=== PATIENT | female | born 1985 | race Caucasian/White ===

== ENCOUNTER 2016-12-09 05:34 | Observation (INO) ==
[2016-12-09] MEDS ORDERED: Ondansetron 4 MG/2 ML VIAL IVP ONE ×2 (05:55→14:26)
[2016-12-09] MEDS ORDERED: *HR* HYDROmorphone (PF) 1 MG/ML SYRINGE IVP ONE ×2 (05:55→07:02)
[2016-12-09] MEDS ORDERED: 0.9 % Sodium Chloride 1,000 ML IVC ONE (05:55)
--- NOTE | 2016-12-09 05:57 | Emergency Department Note ---
Disposition Clinical Impression: Flank pain Disposition: Still a Patient Condition: Undetermined Referrals: Johann Wyatt [Primary Care Provider] - Forms: ED Satisfaction Letter, Work/School Release General Adult HPI - General Chief complaint: ED Abdominal Pain Stated complaint: N/V/hurts when peeing Time Seen by Provider: 12/09/16 05:43 Source: patient Mode of arrival: ambulatory Limitations: no limitations Nursing Notes Reviewed: Yes Vital Signs Reviewed: Yes - History of Present Illness HPI Narrative: 31-year-old female history of PCOS presents with bilateral flank pain worse on the left. She started to notice some pain last night and took Tylenol at that time but woke up 0130 with severe sharp stabbing pain in the left flank more than the right. States this feels just like her kidney stones in the past. Her last kidney stone was January 2015. At that time she required lithotripsy and stent placement. Urologist is Dr. Rodolfo Tellez. States she felt warm denies any fever or chills. She is nauseated and has thrown up. Reports some dysuria that has been ongoing for past week. Denies any blood in her urine or stool. She denies any recent illness, cough, chest pain, shortness of breath. Upon evaluation patient appears very uncomfortable unable to find a position of these. She is very tachycardic. Will give her fluids, Dilaudid for pain, urinalysis and get a CT of the abdomen and pelvis to evaluate for kidney stone. Will also get basic labs evaluated for kidney function. Patients in agreement with this plan. Pain Scale: 9 - Related Data Home Medications Medication Instructions Recorded Confirmed Dm/P-Ephed/Acetaminoph/Doxylam 30 ml PO HS 01/26/15 01/26/15 [Nyquil D Cold & Flu Liquid] Medroxyprogesterone Acetate 150 mg IM QMONTH 01/26/15 01/26/15 [Depo-Provera] Omeprazole [PriLOSEC] 20 mg PO BID 01/26/15 01/26/15 Previous Rx's Medication Instructions Recorded Cefdinir [Omnicef] 300 mg PO DAILY #10 capsule 02/06/15 Hydrocodone/Acetaminophen [[place] 1 tab PO Q4H PRN #20 tab 02/06/15 10-325 Tablet] Phenazopyridine [Pyridium] 200 mg PO TID PRN #15 tablet 02/06/15 Allergies Allergy/AdvReac Type Severity Reaction Status Date / Time acetaminophen [From Percocet] Allergy Confusion Verified 01/26/15 01:46 morphine Allergy Confusion Verified 01/26/15 01:46 Oxycodone [From Percocet] Allergy Confusion Verified 01/26/15 01:46 tramadol Allergy Confusion Verified 01/26/15 01:46 All systems ED: reviewed and negative except as stated. Review of Systems: As Per HPI Constitutional: Denies: fever, chills Cardiovascular: Denies: chest pain Respiratory: Denies: cough, dyspnea Gastrointestinal: Reports: nausea, vomiting. Denies: abdominal pain Genitourinary: Reports: dysuria. Denies: urgency Musculoskeletal: Reports: back pain (flank pain) Integumentary: Denies: rash, abrasion Neurological: Denies: headache Past Medical History - Past Medical History Attestation: Yes The following information was validated with the patient. Source: patient Medical history: Reports: no medical history, kidney stones, renal disease, other Surgical history: Reports: knee replacement Psychiatric history: Reports: no psych history - Social History Smoking Status: Current every day smoker Smokeless Tobacco Status: No Alcohol use: Reports: none Drug use: Reports: none Physical Exam - General Limitations: no limitations General appearance: alert, in no apparent distress, anxious, obese, other ( appears uncomfortable) - Head Head exam: atraumatic, normocephalic, normal inspection - Eye Eye exam: Present: normal appearance, PERRL, EOMI - ENT ENT exam: normal exam, normal oropharynx, mucous membranes moist - Neck Neck exam: Present: normal inspection, full ROM, trachea midline - Chest Chest inspection: Present: normal inspection, symmetric chest wall rise - Respiratory Respiratory exam: Present: normal lung sounds bilaterally. Absent: respiratory distress, wheezes - Cardiovascular Cardiovascular exam: Present: regular rate, normal rhythm, tachycardia, normal heart sounds - Abdominal Exam Abdominal exam: Present: soft, Non-Tender, normal bowel sounds. Absent: tenderness, distention, guarding, rebound, rigidity - Extremities Exam Extremities exam: Present: normal inspection, full ROM, normal capillary refill. Absent: tenderness, pedal edema - Back Exam Back exam: Present: normal inspection, full ROM, CVA tenderness (R) (mild), CVA tenderness (L) (moderate). Absent: tenderness - Neurological Exam Neurological exam: Present: alert, oriented X3 - Skin Skin exam: Present: warm, dry, intact, normal color Course - Reevaluation(s) Reevaluation #1: Patient has bilateral flank pain worse on the left. She reports dysuria as well. Pain feels similar to her kidney stones which she has had the past. Her vital signs she is tachycardic likely due to the pain. She is unable to find a position of ease. Bedside ultrasound showed some mild hydronephrosis of the left kidney. Will give her IV fluids Dilaudid for pain. Awaiting CT of the abdomen and pelvis. Patient will be signed up to daytime physician Dr. Murphy for further management. Time: 06:41 Vital Signs Temperature 98.4 F 12/09/16 05:37 Pulse Rate 144 12/09/16 05:37 Respiratory Rate 18 12/09/16 05:37 Blood Pressure 131/81 12/09/16 05:37 O2 Sat by Pulse Oximetry 97 12/09/16 05:37 Temperature 98.4 F 12/09/16 05:37 Pulse Rate 125 12/09/16 06:43 Respiratory Rate 18 12/09/16 06:43 Blood Pressure 143/81 12/09/16 06:43 O2 Sat by Pulse Oximetry 98 12/09/16 06:43 Oxygen Delivery Oxygen Delivery Room Air Medical Decision Making - Medical Records Medical records reviewed: Yes I reviewed the patient's medical records. - Lab Data Lab results reviewed: Yes I reviewed the patient's lab results. Result diagrams: 12/09/16 06:10 12/09/16 06:10 Lab Results 12/09/16 12/09/16 12/09/16 Range/Units 06:10 06:10 06:27 WBC 17.5 H (4.3-11.1) K/mcL RBC 4.94 (3.82-4.97) M/mcL Hgb 14.0 (11.5-15.4) g/dL Hct 41.4 (35.3-44.9) % MCV 83.8 (83.0-100.0) fL MCH 28.3 (28.0-33.3) pg MCHC 33.8 (31.6-35.5) g/dL RDW 12.4 (11.5-14.5) % Plt Count 247 (140-400) K/mcL MPV 10.3 (9.4-12.4) fL Immature Gran % 0.9 (0-4) % Seg Neutrophils % 88.7 % Lymphocytes % 5.0 % Monocytes % 4.5 % Eosinophils % 0.5 % Basophils % 0.4 % Neutrophils # 15.6 H (1.6-8.9) K/mcL Lymphocytes # 0.9 (0.6-4.6) K/mcL Monocytes # 0.8 (0.0-1.3) K/mcL Eosinophils # 0.1 (0.0-0.6) K/mcL Basophils # 0.1 (0.0-0.2) K/mcL Sodium 135 L (136-145) mEq/L Potassium 3.5 (3.5-4.5) mEq/L Chloride 107 (98-109) mEq/L Carbon Dioxide 20 (19-29) mEq/L BUN 12 (7-20) mg/dL Creatinine 0.97 (0.57-1.11) mg/dL Est GFR ( Amer) > 60 (> 60) Est GFR (Non-Af Amer) > 60 (> 60) BUN/Creatinine Ratio 12 (6-26) Glucose 97 (70-99) mg/dL Calculated Osmolality 280 (280-300) Calcium 9.0 (8.6-10.8) mg/dL Urine Color Yellow (Yellow) Urine Clarity Cloudy A (Clear) Urine pH 6.0 (5.0-8.0) pH Units Ur Specific [place] 1.025 (1.010-1.025) Urine Protein 30 H (Neg-Trace) mg/dL Urine Glucose (UA) Normal (Normal) mg/dL Urine Ketones Negative (Negative) mg/dL Urine Blood Moderate H (Negative) Urine Nitrite Negative (Negative) Urine Bilirubin Negative (Negative) Urine Urobilinogen Normal (Normal) mg/dL Ur Leukocyte Esterase Large H (Negative) Urine Microscopic RBC 30-50 H (0-3) per hpf Urine Microscopic WBC TNTC H (0-3) per hpf Ur Squamous Epith Cells Many H (None-Few) per lpf Urine Bacteria Few (None-Few) per hpf Hyaline Casts None Seen (None-Few) per lpf Ur Culture Indicated? YES A (NO) Urine Test (Negative) 12/09/16 Range/Units 06:27 WBC (4.3-11.1) K/mcL RBC (3.82-4.97) M/mcL Hgb (11.5-15.4) g/dL Hct (35.3-44.9) % MCV (83.0-100.0) fL MCH (28.0-33.3) pg MCHC (31.6-35.5) g/dL RDW (11.5-14.5) % Plt Count (140-400) K/mcL MPV (9.4-12.4) fL Immature Gran % (0-4) % Seg Neutrophils % % Lymphocytes % % Monocytes % % Eosinophils % % Basophils % % Neutrophils # (1.6-8.9) K/mcL Lymphocytes # (0.6-4.6) K/mcL Monocytes # (0.0-1.3) K/mcL Eosinophils # (0.0-0.6) K/mcL Basophils # (0.0-0.2) K/mcL Sodium (136-145) mEq/L Potassium (3.5-4.5) mEq/L Chloride (98-109) mEq/L Carbon Dioxide (19-29) mEq/L BUN (7-20) mg/dL Creatinine (0.57-1.11) mg/dL Est GFR ( Amer) (> 60) Est GFR (Non-Af Amer) (> 60) BUN/Creatinine Ratio (6-26) Glucose (70-99) mg/dL Calculated Osmolality (280-300) Calcium (8.6-10.8) mg/dL Urine Color (Yellow) Urine Clarity (Clear) Urine pH (5.0-8.0) pH Units Ur Specific [place] (1.010-1.025) Urine Protein (Neg-Trace) mg/dL Urine Glucose (UA) (Normal) mg/dL Urine Ketones (Negative) mg/dL Urine Blood (Negative) Urine Nitrite (Negative) Urine Bilirubin (Negative) Urine Urobilinogen (Normal) mg/dL Ur Leukocyte Esterase (Negative) Urine Microscopic RBC (0-3) per hpf Urine Microscopic WBC (0-3) per hpf Ur Squamous Epith Cells (None-Few) per lpf Urine Bacteria (None-Few) per hpf Hyaline Casts (None-Few) per lpf Ur Culture Indicated? (NO) Urine Test Negative (Negative) S.B.A.R. - S.Olena Situation: Demographics, MOA Background: Presenting Complaint, Relevant PMH, Meds, & Allergies Assessment: Vital Signs, Course and respsone to treatment, Exam Concerns, Patient/Family Expectation, Pertinant Lab Results, Outstanding Labs Recommendation: Barrier(s) to disposition, Recommendation based on pending studies, treatments, or consults S.B.ARyann Report Given to: Jeffrey Cruz Repor Time: 07:00 Attestation Statement - Attestation Attestation: I, Jerardo Mack MD, personally evaluated this patient and discussed their management with the resident physician. I reviewed the resident's note and agree with the documented findings, medical decision making, and plan of care. 31-year-old female with history of kidney stones presents to the emergency department with a complaint of not feeling well for the past week or more. She has had bilateral flank pain associated with nausea and vomiting and intermittent fever. She states she was seen at urgent care about a week ago and had an ultrasound and told that she would pass the stones. She states that she has passed 2 stones over the past week but continues to have bilateral flank pain and tonight the pain became much worse and is worse on the left side. On examination patient is a well-developed obese female in no acute distress but does appear to be in moderate discomfort. She is alert and oriented 3. There is no cyanosis or diaphoresis. Breath sounds are clear and equal bilaterally. Heart regular with a moderate tachycardia. Abdomen soft and nontender with normal bowel sounds. There is mild right CVA tenderness and moderate left CVA tenderness. At shift change patient is signed out to the [facility] physician, Dr. Murphy.
[2016-12-09 06:19] LABS: Basophils # 0.1 K/mcL (0.0-0.2); Basophils % 0.4 %; Eosinophils # 0.1 K/mcL (0.0-0.6); Eosinophils % 0.5 %; Hematocrit 41.4 % (35.3-44.9); Immature Granulocytes % 0.9 % (0-4); Lymphocytes # 0.9 K/mcL (0.6-4.6); Mean Corpuscular HGB Conc 33.8 g/dL (31.6-35.5); Mean Corpuscular Hemoglobin 28.3 pg (28.0-33.3); Mean Corpuscular Volume 83.8 fL (83.0-100.0); Mean Platelet Volume 10.3 fL (9.4-12.4); Monocytes # 0.8 K/mcL (0.0-1.3); Monocytes % 4.5 %; Neutrophils # 15.6 K/mcL (1.6-8.9); Platelet Count 247 K/mcL (140-400); Red Blood Count 4.94 M/mcL (3.82-4.97); Red Cell Distribution Width 12.4 % (11.5-14.5); Segmented Neutrophils % 88.7 %
[2016-12-09 06:30] LABS: BUN/Creatinine Ratio 12 (6-26); Blood Urea Nitrogen 12 mg/dL (7-20); Carbon Dioxide 20 mEq/L (19-29); Chloride 107 mEq/L (98-109); Glucose 97 mg/dL (70-99); Osmolality,Calculated 280 (280-300); Potassium 3.5 mEq/L (3.5-4.5); Sodium 135 mEq/L (136-145); eGFR For African Americans > 60 (> 60); eGFR For Non-African Americans > 60 (> 60)
[2016-12-09 06:36] LABS: Bilirubin,Urine Negative (Negative); Blood,Urine Moderate (Negative); Clarity,Urine Cloudy (Clear); Color,Urine Yellow (Yellow); Glucose,Urine (UA) Normal (Normal); Ketones,Urine Negative (Negative); Leukocyte Esterase,Urine Large (Negative); Nitrite,Urine Negative (Negative); Protein,Urine 30 mg/dL (Neg-Trace); Specific Gravity,Urine 1.025 (1.010-1.025); Urobilinogen,Urine Normal (Normal)
[2016-12-09 06:38] LABS: Bacteria,Urine Few per hpf (None-Few); Hyaline Casts,Urine None Seen per lpf (None-Few); RBC,Urine 30-50 per hpf (0-3); Squamous Epithelial Cell,Urine Many per lpf (None-Few); WBC,Urine TNTC per hpf (0-3)
--- NOTE | 2016-12-09 07:10 | Emergency Department Note ---
Disposition Clinical Impression: Flank pain, Kidney stone on left side Disposition: Admitted As Inpatient Condition: Fair Referrals: Johann Wyatt [Primary Care Provider] - Forms: ED Satisfaction Letter, Work/School Release Time of Disposition: 07:34 General Adult HPI - General Chief complaint: ED Abdominal Pain Stated complaint: N/V/hurts when peeing Time Seen by Provider: 12/09/16 05:43 Source: patient Mode of arrival: ambulatory Limitations: no limitations - History of Present Illness Pain Scale: 9 - Related Data Home Medications Medication Instructions Recorded Confirmed Dm/P-Ephed/Acetaminoph/Doxylam 30 ml PO HS 01/26/15 01/26/15 [Nyquil D Cold & Flu Liquid] Medroxyprogesterone Acetate 150 mg IM QMONTH 01/26/15 01/26/15 [Depo-Provera] Omeprazole [PriLOSEC] 20 mg PO BID 01/26/15 01/26/15 Previous Rx's Medication Instructions Recorded Cefdinir [Omnicef] 300 mg PO DAILY #10 capsule 02/06/15 Hydrocodone/Acetaminophen [[place] 1 tab PO Q4H PRN #20 tab 02/06/15 10-325 Tablet] Phenazopyridine [Pyridium] 200 mg PO TID PRN #15 tablet 02/06/15 Allergies Allergy/AdvReac Type Severity Reaction Status Date / Time acetaminophen [From Percocet] Allergy Confusion Verified 01/26/15 01:46 morphine Allergy Confusion Verified 01/26/15 01:46 Oxycodone [From Percocet] Allergy Confusion Verified 01/26/15 01:46 tramadol Allergy Confusion Verified 01/26/15 01:46 Constitutional: Denies: fever, chills Cardiovascular: Denies: chest pain Respiratory: Denies: cough, dyspnea Gastrointestinal: Reports: nausea, vomiting. Denies: abdominal pain Genitourinary: Reports: dysuria. Denies: urgency Musculoskeletal: Reports: back pain (flank pain) Integumentary: Denies: rash, abrasion Neurological: Denies: headache Past Medical History - Past Medical History Medical history: Reports: no medical history, kidney stones, renal disease, other Surgical history: Reports: knee replacement Psychiatric history: Reports: no psych history - Social History Smoking Status: Current every day smoker Smokeless Tobacco Status: No Alcohol use: Reports: none Drug use: Reports: none Physical Exam - General Limitations: no limitations General appearance: alert, in no apparent distress, anxious, obese, other ( appears uncomfortable) Course Vital Signs Temperature 98.4 F 12/09/16 05:37 Pulse Rate 144 12/09/16 05:37 Respiratory Rate 18 12/09/16 05:37 Blood Pressure 131/81 12/09/16 05:37 O2 Sat by Pulse Oximetry 97 12/09/16 05:37 Temperature 98.4 F 12/09/16 05:37 Pulse Rate 125 12/09/16 06:43 Respiratory Rate 18 12/09/16 06:43 Blood Pressure 143/81 12/09/16 06:43 O2 Sat by Pulse Oximetry 98 12/09/16 06:43 Oxygen Delivery Oxygen Delivery Room Air Medical Decision Making - Lab Data Result diagrams: 12/09/16 06:10 12/09/16 06:10 Lab Results 12/09/16 12/09/16 12/09/16 Range/Units 06:10 06:10 06:27 WBC 17.5 H (4.3-11.1) K/mcL RBC 4.94 (3.82-4.97) M/mcL Hgb 14.0 (11.5-15.4) g/dL Hct 41.4 (35.3-44.9) % MCV 83.8 (83.0-100.0) fL MCH 28.3 (28.0-33.3) pg MCHC 33.8 (31.6-35.5) g/dL RDW 12.4 (11.5-14.5) % Plt Count 247 (140-400) K/mcL MPV 10.3 (9.4-12.4) fL Immature Gran % 0.9 (0-4) % Seg Neutrophils % 88.7 % Lymphocytes % 5.0 % Monocytes % 4.5 % Eosinophils % 0.5 % Basophils % 0.4 % Neutrophils # 15.6 H (1.6-8.9) K/mcL Lymphocytes # 0.9 (0.6-4.6) K/mcL Monocytes # 0.8 (0.0-1.3) K/mcL Eosinophils # 0.1 (0.0-0.6) K/mcL Basophils # 0.1 (0.0-0.2) K/mcL Sodium 135 L (136-145) mEq/L Potassium 3.5 (3.5-4.5) mEq/L Chloride 107 (98-109) mEq/L Carbon Dioxide 20 (19-29) mEq/L BUN 12 (7-20) mg/dL Creatinine 0.97 (0.57-1.11) mg/dL Est GFR ( Amer) > 60 (> 60) Est GFR (Non-Af Amer) > 60 (> 60) BUN/Creatinine Ratio 12 (6-26) Glucose 97 (70-99) mg/dL Calculated Osmolality 280 (280-300) Calcium 9.0 (8.6-10.8) mg/dL Urine Color Yellow (Yellow) Urine Clarity Cloudy A (Clear) Urine pH 6.0 (5.0-8.0) pH Units Ur Specific [place] 1.025 (1.010-1.025) Urine Protein 30 H (Neg-Trace) mg/dL Urine Glucose (UA) Normal (Normal) mg/dL Urine Ketones Negative (Negative) mg/dL Urine Blood Moderate H (Negative) Urine Nitrite Negative (Negative) Urine Bilirubin Negative (Negative) Urine Urobilinogen Normal (Normal) mg/dL Ur Leukocyte Esterase Large H (Negative) Urine Microscopic RBC 30-50 H (0-3) per hpf Urine Microscopic WBC TNTC H (0-3) per hpf Ur Squamous Epith Cells Many H (None-Few) per lpf Urine Bacteria Few (None-Few) per hpf Hyaline Casts None Seen (None-Few) per lpf Ur Culture Indicated? YES A (NO) Urine Test (Negative) 12/09/16 Range/Units 06:27 WBC (4.3-11.1) K/mcL RBC (3.82-4.97) M/mcL Hgb (11.5-15.4) g/dL Hct (35.3-44.9) % MCV (83.0-100.0) fL MCH (28.0-33.3) pg MCHC (31.6-35.5) g/dL RDW (11.5-14.5) % Plt Count (140-400) K/mcL MPV (9.4-12.4) fL Immature Gran % (0-4) % Seg Neutrophils % % Lymphocytes % % Monocytes % % Eosinophils % % Basophils % % Neutrophils # (1.6-8.9) K/mcL Lymphocytes # (0.6-4.6) K/mcL Monocytes # (0.0-1.3) K/mcL Eosinophils # (0.0-0.6) K/mcL Basophils # (0.0-0.2) K/mcL Sodium (136-145) mEq/L Potassium (3.5-4.5) mEq/L Chloride (98-109) mEq/L Carbon Dioxide (19-29) mEq/L BUN (7-20) mg/dL Creatinine (0.57-1.11) mg/dL Est GFR ( Amer) (> 60) Est GFR (Non-Af Amer) (> 60) BUN/Creatinine Ratio (6-26) Glucose (70-99) mg/dL Calculated Osmolality (280-300) Calcium (8.6-10.8) mg/dL Urine Color (Yellow) Urine Clarity (Clear) Urine pH (5.0-8.0) pH Units Ur Specific [place] (1.010-1.025) Urine Protein (Neg-Trace) mg/dL Urine Glucose (UA) (Normal) mg/dL Urine Ketones (Negative) mg/dL Urine Blood (Negative) Urine Nitrite (Negative) Urine Bilirubin (Negative) Urine Urobilinogen (Normal) mg/dL Ur Leukocyte Esterase (Negative) Urine Microscopic RBC (0-3) per hpf Urine Microscopic WBC (0-3) per hpf Ur Squamous Epith Cells (None-Few) per lpf Urine Bacteria (None-Few) per hpf Hyaline Casts (None-Few) per lpf Ur Culture Indicated? (NO) Urine Test Negative (Negative) Attestation Statement - Attestation Attestation: There is from Dr. Mack at [address] and reassessment. Patient with a known history of kidney stones presents with renal colic. Uncomfortable appearing on exam. CT pending 07:15: call placed to Dr. Tellez, urology 07:30: Dr. Tellez accepts admission to his service
[2016-12-09] MEDS ORDERED: Ondansetron 4 MG/2 ML VIAL ONE ×2 (07:12→14:22)
[2016-12-09] MEDS ORDERED: Ondansetron 4 MG/2 ML VIAL IVP PRN ×2 (07:16→08:58)
[2016-12-09] MEDS ORDERED: Promethazine 12.5 MG in 0.9 % Sodium Chloride 50 ML IVPB ONE (07:58)
[2016-12-09] MEDS ORDERED: Ketorolac 30 MG/ML VIAL IVP PRN (08:58)
[2016-12-09] MEDS ORDERED: Naloxone 0.4 MG/ML INJ IVP PRN ×2 (08:58→17:53)
[2016-12-09] MEDS ORDERED: *HR* Promethazine 25 MG/ML VIAL IVP PRN ×3 (08:58→17:53)
[2016-12-09] MEDS ORDERED: 0.9 % Sodium Chloride 1,000 ML IVC SCH (09:00)
--- NOTE | 2016-12-09 09:06 | Urology History & Physical ---
Date of Encounter: 12/09/16 Time of Encounter: 09:04 Assessment and Plan (1) Flank pain Current Visit: Yes Status: Acute from stone (2) Fever Current Visit: No Status: Acute possible UTI and infection. will treat with IVF, ABX and ureteral stent. Qualifiers: Fever type: due to other condition Qualified Code(s): R50.81 - Fever presenting with conditions classified elsewhere (3) Ureteral stone with hydronephrosis Current Visit: No Status: Acute pt has a proximal ureteral stone with possible infection. will not proceed with stone extraction in this setting. will require ureteral stent placement and staged stone extraction. we discussed risk for the procedure including pain , bleeding, infection, injury to urinary tract and stent complications. History of Present Illness Chief complaint: flank pain HPI: Ms. Baer is a 31 year old female hx of kidney stones. recent flank pain. no reported fever. +nausea. does not feel well. CT scan with a 6 mm proximal ureteral stone with hydronephrosis. tachycardia and low grade fever after admission. Past Med Surg Social Fam HX - Past Medical History Medical history: no medical history, kidney stones, renal disease, other Psychiatric history: no psych history - Past Surgical History Surgical History: knee replacement - Social History Smoking Status: Current every day smoker Smokeless Tobacco Status: No Alcohol use: none Drug use: none Medications and Allergies Medroxyprogesterone Acetate [Depo-Provera] 150 mg IM QMONTH 01/26/15 [History] Omeprazole [PriLOSEC] 20 mg PO BID PRN 01/26/15 [History] Hydrocodone/Acetaminophen [[place] 10-325 Tablet] 1 tab PO Q4H PRN #20 tab [Rx] metFORMIN [Glucophage] 500 mg PO DAILY 12/09/16 [History] Allergies acetaminophen [From Percocet] Allergy (Verified 01/26/15 01:46) Confusion morphine Allergy (Verified 01/26/15 01:46) Confusion Oxycodone [From Percocet] Allergy (Verified 01/26/15 01:46) Confusion tramadol Allergy (Verified 01/26/15 01:46) Confusion Review of Systems - Constitutional fever(s), malaise - EENT Nose, mouth and throat: no dizziness - Cardiovascular no chest pain - Respiratory no cough - Gastrointestinal abdominal pain, nausea - Genitourinary Genitourinary: flank pain - Musculoskeletal back pain - Integumentary no erythema - Neurological no confusion - Psychiatric no anxiety - Hematologic/Lymphatic no easy bleeding - Allergic/Immunologic no throat swelling Exam Initial Vital Signs Temp Pulse Resp BP Pulse Ox 98.4 F 144 18 131/81 97 12/09/16 05:37 12/09/16 05:37 12/09/16 05:37 12/09/16 05:37 12/09/16 05:37 - General physical appearance Present: well developed, moderate pain - Eyes Present: PERRL - ENT Present: normal nares - Neck Present: no masses - Respiratory Present: normal respiratory effort - Cardiovascular Cardiovascular exam IM: RRR - Abdomen Abdomen: Present: soft - Integumentary Present: no rash - Neurologic Present: normal coordination. Absent: disoriented, confused - Musculoskeletal Present: normal gait Urology Results - Labs 12/09/16 06:10 12/09/16 06:10 Abnormal lab results WBC 17.5 K/mcL (4.3-11.1) H 12/09/16 06:10 Neutrophils # 15.6 K/mcL (1.6-8.9) H 12/09/16 06:10 Sodium 135 mEq/L (136-145) L 12/09/16 06:10 Urine Clarity Cloudy (Clear) A 12/09/16 06:27 Urine Protein 30 mg/dL (Neg-Trace) H 12/09/16 06:27 Urine Blood Moderate (Negative) H 12/09/16 06:27 Ur Leukocyte Esterase Large (Negative) H 12/09/16 06:27 Urine Microscopic RBC 30-50 per hpf (0-3) H 12/09/16 06:27 Urine Microscopic WBC TNTC per hpf (0-3) H 12/09/16 06:27 Ur Squamous Epith Cells Many per lpf (None-Few) H 12/09/16 06:27 Ur Culture Indicated? YES (NO) A 12/09/16 06:27 All other labs normal.
[2016-12-09] MEDS: *HR* HYDROmorphone (PF) 1 MG/ML SYRINGE IVP PRN ×5 (09:24→22:08)
--- NOTE | 2016-12-09 14:14 | Anesthesia Evaluation PreOp ---
Date of Encounter: 12/09/16 Time of Encounter: 14:13 - Past History Planned Operation: Left ureteral stent Cardiac History: Denies any Significant Hx Pulmonary History: Smoker, Asthma FILTER HELPER History: Denies Any Significant HX Other Medical History: Renal (stones), Other (BMI 49) Anesthesia History: No Prior Anesthetic Complications Alcohol Use: none Drug use: none Medications and Allergies Medroxyprogesterone Acetate [Depo-Provera] 150 mg IM QMONTH 01/26/15 [History] Omeprazole [PriLOSEC] 20 mg PO BID PRN 01/26/15 [History] Hydrocodone/Acetaminophen [[place] 10-325 Tablet] 1 tab PO Q4H PRN #20 tab [Rx] metFORMIN [Glucophage] 500 mg PO DAILY 12/09/16 [History] Allergies acetaminophen [From Percocet] Allergy (Verified 01/26/15 01:46) Confusion morphine Allergy (Verified 01/26/15 01:46) Confusion Oxycodone [From Percocet] Allergy (Verified 01/26/15 01:46) Confusion tramadol Allergy (Verified 01/26/15 01:46) Confusion - Meds/Allergy Pre-op Review Medications Reviewed: Yes Allergies Reviewed: Yes Beta Blockers on Current Med List: No Anesthesia Results - Labs 12/09/16 06:10 12/09/16 06:10 Anesthesia Exam Last Vital Signs Temp 99.2 F 12/09/16 10:34 Pulse 127 12/09/16 10:34 Resp 17 12/09/16 10:34 BP 108/68 12/09/16 10:34 Pulse Ox 94 12/09/16 10:34 Weight: 118 kg NPO (# of Hours): >> 8 hrs - HEENT Pupil (Motor): Pupils equal, EOMI Mallampati: II Teeth: Normal Oral Opening: Greater than 3 - FILTER HELPER LOC: Oriented FILTER HELPER Motor: Normal RUE, Normal LUE, Normal RLE, Normal LLE, Normal Face - Cardiac Rhythm: Regular Murmur: None - Pulmonary Breath Sounds: bilateral Clear Respiratory Effort: Symmetrical Anesthesia Assess/Plan ASA Score: 3 Modified [place] Scale for Level of Consciousness: Cooperative, oriented, and tranquil Anesthetic Plan: General Monitoring Plan: Standard Monitors Recovery Plan: PACU
[2016-12-09] MEDS ORDERED: *HR* Midazolam HCl 2 MG/2 ML VIAL ONE (14:22)
[2016-12-09] MEDS ORDERED: *HR* FentaNYL (PF) 100 MCG/2 ML VIAL ONE ×2 (14:22→16:12)
[2016-12-09] MEDS ORDERED: Dexamethasone 4 MG/ML VIAL ONE (14:22)
[2016-12-09] MEDS ORDERED: Lidocaine -MPF 2% 2 ML VIAL ONE (14:22)
[2016-12-09] MEDS ORDERED: *HR* Propofol 200 MG/20 ML VIAL IVP ONE ×2 (14:22→15:54)
[2016-12-09] MEDS ORDERED: *HR* Labetalol 20 MG/4 ML SYRINGE IVP PRN (14:26)
[2016-12-09] MEDS ORDERED: *HR* HYDROmorphone (PF) 1 MG/ML SYRINGE IVP PRN (14:26)
[2016-12-09] MEDS ORDERED: Dexamethasone 4 MG/ML VIAL IVP ONE (14:26)
--- NOTE | 2016-12-09 16:48 | Operative Note ---
Date of procedure: 12/09/16 Pre-op diagnosis: left proximal ureteral stone with tachycardia and fever Post-op diagnosis: same Procedure: Cystoscopy. Left retrograde pyelogram. Left ureteral stent placement. Anesthesia: GETA Surgeon: Rodolfo Tellez Estimated blood loss (cc): 0 Specimen: None Condition: stable Disposition: PACU Procedure in Detail: PROCEDURE IN DETAIL: Patient was taken back to the operating room, positioned supine on the operating table. Anesthesia was applied without complication. They were moved into dorsal lithotomy. Careful attention was maintained to cushion all pressure points for patient's safety. They were prepped and draped in sterile fashion. Time-out was performed with the proper patient and procedure. A 21-[place] rigid cystoscope was inserted into the bladder without difficulty. Systematic examination of bladder revealed no abnormalities. The ureteral orifice was cannulated using a 5-[place] ureteral Catheter and a retrograde pyelogram was performed using Isovue. A filling defect was identified which corresponded to the stone. At that point, a zip wire was placed through the 5-[place] Islander and confirmed in the renal pelvis with fluoroscopy. A 4.8 x 26 ureteral stent was placed over the zip wire under fluoroscopy without complication. Significant purulent material was draining from the left stent and renal pelvis. Styles catheter was placed after the procedure.
[2016-12-09] MEDS ORDERED: Ringers Solution, Lactated 1,000 ML ONE (17:12)
--- NOTE | 2016-12-09 17:52 | Anesthesia Evaluation Post Op ---
Date of Encounter: 12/09/16 Time of Encounter: 17:45 - Vital Signs Vital Signs: Last Vital Signs Temp 98.7 F 12/09/16 17:50 Pulse 68 12/09/16 17:50 Resp 16 12/09/16 17:50 BP 131/84 12/09/16 17:50 Pulse Ox 94 12/09/16 17:50 - Lungs Lungs: Clear Ascult./Percussion - Airway Airway: Non-obstructed - Cardiovascular Regular Rate - Mental Status Mental Status: Alert & Oriented, Answers Appropriately - Pain Pain Scale: 3 - Nausea Vomiting Nausea Vomiting: Not Present - Hydration Hydration: NPO - Discharge PostOp Status: Transfer Patient to floor
[2016-12-09] MEDS ORDERED: D5% in Water 1,000 ML IVC PRN (17:53)
[2016-12-09] MEDS ORDERED: Dextrose Gel 15 GM PO PRN ×2 (17:53)
[2016-12-09] MEDS ORDERED: *HR* Dextrose 50 % in Water (Syg) 50 ML SYRINGE IVP PRN (17:53)
[2016-12-09] MEDS: Ondansetron 4 MG/2 ML VIAL IVP PRN (18:02)
[2016-12-09] MEDS: Insulin LISPRO 300 UNITS/3 ML VIAL SQ SCH (18:27)
[2016-12-09] MEDS: 0.9 % Sodium Chloride 1,000 ML IVC SCH (18:59)
[2016-12-09] MEDS: Ketorolac 30 MG/ML VIAL IVP PRN (19:12)
[2016-12-10] MEDS: 0.9 % Sodium Chloride 1,000 ML IVC SCH (01:11)
[2016-12-10] MEDS: Ketorolac 30 MG/ML VIAL IVP PRN ×2 (01:12→07:32)
[2016-12-10] MEDS: Insulin LISPRO 300 UNITS/3 ML VIAL SQ SCH ×2 (01:15→05:22)
[2016-12-10 04:01] VITALS: BP 123/77
[2016-12-10 05:18] LABS: Mean Corpuscular Volume 88.1 fL (83.0-100.0)
[2016-12-10 05:19] LABS: Basophils % 0.1 %; Hematocrit 38.5 % (35.3-44.9); Hemoglobin 12.4 g/dL (11.5-15.4); Immature Granulocytes % 0.8 % (0-4); Lymphocytes # 1.2 K/mcL (0.6-4.6); Lymphocytes % 4.1 %; Mean Corpuscular HGB Conc 32.2 g/dL (31.6-35.5); Mean Corpuscular Hemoglobin 28.4 pg (28.0-33.3); Mean Platelet Volume 10.7 fL (9.4-12.4); Monocytes % 3.3 %; Neutrophils # 26.7 K/mcL (1.6-8.9); Platelet Count 220 K/mcL (140-400); Red Blood Count 4.37 M/mcL (3.82-4.97); Red Cell Distribution Width 12.8 % (11.5-14.5); Segmented Neutrophils % 91.7 %
[2016-12-10] MEDS: *HR* HYDROmorphone (PF) 1 MG/ML SYRINGE IVP PRN (05:22)
[2016-12-10] MEDS: Ondansetron 4 MG/2 ML VIAL IVP PRN (05:27)
[2016-12-10 05:29] LABS: BUN/Creatinine Ratio 20 (6-26); Blood Urea Nitrogen 16 mg/dL (7-20); Carbon Dioxide 23 mEq/L (19-29); Chloride 111 mEq/L (98-109); Glucose 130 mg/dL (70-99); Osmolality,Calculated 289 (280-300); Sodium 138 mEq/L (136-145); eGFR For African Americans > 60 (> 60); eGFR For Non-African Americans > 60 (> 60)
[2016-12-10 05:36] LABS: Potassium 4.6 mEq/L (3.5-4.5)
[2016-12-10 05:47] LABS: Platelet Estimate Normal (Normal); Toxic Granulation Present (Not Present)
--- NOTE | 2016-12-10 06:55 | Urology Progress Note ---
Date of Encounter: 12/10/16 Time of Encounter: 06:52 - Assessment and Plan (1) Flank pain Current Visit: Yes Status: Resolved (2) Fever Current Visit: No Status: Resolved Qualifiers: Fever type: due to other condition Qualified Code(s): R50.81 - Fever presenting with conditions classified elsewhere (3) Ureteral stone with hydronephrosis Current Visit: No Status: Acute Assessment and plan: Patient feels much better after ureteral stent placement. White cell count did increase today but this is not unusual based on her clinical circumstances. I do not feel that this is an indication of worsening infection especially because her vital signs have improved and she overall feels better. Culture was inconclusive. We discussed discharge home versus continuing another 24 hours of hospitalization and rechecking the white cell count tomorrow. Patient wishes for discharge which I feel is reasonable. She was provided contact information if she develops significant fever, malaise or illness at home that she will require prompt evaluation. The patient and her mother feel comfortable with this plan and had no further questions. Progress Note Subjective: no new complaints, feels better Objective Initial Vital Signs Temp Pulse Resp BP Pulse Ox 98.4 F 144 18 131/81 97 12/09/16 05:37 12/09/16 05:37 12/09/16 05:37 12/09/16 05:37 12/09/16 05:37 - General physical appearance Present: no distress - Abdomen Present: soft - Additional Exam urine still dusky in tube - Labs 12/10/16 05:03 12/10/16 05:03 Diabetes panel 12/10/16 Range/Units 05:03 Sodium 138 (136-145) mEq/L Potassium 4.6 H D (3.5-4.5) mEq/L Chloride 111 H (98-109) mEq/L Carbon Dioxide 23 (19-29) mEq/L BUN 16 (7-20) mg/dL Creatinine 0.80 (0.57-1.11) mg/dL Glucose 130 H (70-99) mg/dL Calcium 9.0 (8.6-10.8) mg/dL Calcium panel 12/10/16 Range/Units 05:03 Calcium 9.0 (8.6-10.8) mg/dL Pituitary panel 12/10/16 Range/Units 05:03 Sodium 138 (136-145) mEq/L Potassium 4.6 H D (3.5-4.5) mEq/L Chloride 111 H (98-109) mEq/L Carbon Dioxide 23 (19-29) mEq/L BUN 16 (7-20) mg/dL Creatinine 0.80 (0.57-1.11) mg/dL Glucose 130 H (70-99) mg/dL Calcium 9.0 (8.6-10.8) mg/dL Adrenal panel 12/10/16 Range/Units 05:03 Sodium 138 (136-145) mEq/L Potassium 4.6 H D (3.5-4.5) mEq/L Chloride 111 H (98-109) mEq/L Carbon Dioxide 23 (19-29) mEq/L BUN 16 (7-20) mg/dL Creatinine 0.80 (0.57-1.11) mg/dL Glucose 130 H (70-99) mg/dL Calcium 9.0 (8.6-10.8) mg/dL - VTE Documentation of Mechanical Device: Intermittent pneumatic compression device Consult Discharge Plan - Plan Referrals: Johann Wyatt [Primary Care Provider] - Rodolfo Tellez MD [Partnered Physician] -
--- NOTE | 2016-12-10 06:59 | Discharge Summary ---
Date of Encounter: 12/10/16 Time of Encounter: 06:56 - Discharge Diagnosis (1) Flank pain Priority: Secondary Status: Resolved (2) Fever Priority: Secondary Status: Resolved Qualifiers: Fever type: due to other condition Qualified Code(s): R50.81 - Fever presenting with conditions classified elsewhere (3) Ureteral stone with hydronephrosis Priority: Primary Status: Resolved - Discharge Medications Prescriptions: HYDROcodone/Acet 10/325 mg [Manson 10-325 mg] 1 tab PO Q4HR PRN #30 tab PRN Reason: Pain Cefdinir [Omnicef] 300 mg PO BID #30 capsule Phenazopyridine HCl [Pyridium] 200 mg PO TIDAC #20 tab Home Medications: Medroxyprogesterone Acetate [Depo-Provera] 150 mg IM QMONTH 01/26/15 [History] Omeprazole [PriLOSEC] 20 mg PO BID PRN 01/26/15 [History] metFORMIN [Glucophage] 500 mg PO DAILY 12/09/16 [History] Cefdinir [Omnicef] 300 mg PO BID #30 capsule 12/10/16 [Rx] HYDROcodone/Acet 10/325 mg [Manson 10-325 mg] 1 tab PO Q4HR PRN #30 tab 12/10/16 [Rx] Phenazopyridine HCl [Pyridium] 200 mg PO TIDAC #20 tab 12/10/16 [Rx] Allergies/Adverse Reactions: Allergies acetaminophen [From Percocet] Allergy (Verified 01/26/15 01:46) Confusion morphine Allergy (Verified 01/26/15 01:46) Confusion Oxycodone [From Percocet] Allergy (Verified 01/26/15 01:46) Confusion tramadol Allergy (Verified 01/26/15 01:46) Confusion Labs on day of discharge: Labs from last 24 hours 12/10/16 12/10/16 05:03 05:03 WBC 29.1 H D RBC 4.37 Hgb 12.4 D Hct 38.5 MCV 88.1 MCH 28.4 MCHC 32.2 RDW 12.8 Plt Count 220 MPV 10.7 Immature Gran % 0.8 Seg Neutrophils % 91.7 Lymphocytes % 4.1 Monocytes % 3.3 Eosinophils % 0.0 Basophils % 0.1 Neutrophils # 26.7 H Lymphocytes # 1.2 Monocytes # 1.0 Eosinophils # 0.0 Basophils # 0.0 Toxic Granulation Present A Platelet Estimate Normal Sodium 138 Potassium 4.6 H D Chloride 111 H Carbon Dioxide 23 BUN 16 Creatinine 0.80 Est GFR ( Amer) > 60 Est GFR (Non-Af Amer) > 60 BUN/Creatinine Ratio 20 Glucose 130 H Calculated Osmolality 289 Calcium 9.0 - Impressions ITS Impressions Fluoroscopy 12/09/16 16:15 IMPRESSION: Intraprocedural fluoroscopic spot images as above. See separate procedure report for more information. D/ / 12/09/2016 16:48:28 Jesse You MD / vanessa Interpreting Provider: Jesse You MD X-Ray 12/09/16 16:15 IMPRESSION: Intraprocedural fluoroscopic spot images as above. See separate procedure report for more information. D/ / 12/09/2016 16:48:28 Jesse You MD / vanessa Interpreting Provider: Jesse You MD Date of admission: 12/09/16 07:43 Primary care physician: Johann Wyatt Discharging clinician: Rodolfo Tellez Anticipated date of discharge: 12/10/16 - Patient Status Disposition: Home, Self-Care Condition: Fair Functional capacity at discharge: independent ambulation Overall status at discharge: patient is progressing back to baseline - Discharge Instructions Follow Up With: Johann Wyatt [Primary Care Provider] - Rodolfo Tellez MD [Partnered Physician] - (my office will contact patieint with followup surgery) Additional Instructions: Expect stent discomfort including urgency, frequency, burning on urination, light blood in the urine and flank discomfort Call if fever over 101 that does not respond to ibuprofen. Call with significant illness or malaise. My office will contact patient with follow-up surgery date - Diet and Activity Activity: increase activity as tolerated Diet: advance to your usual diet - Hospital Course Hospital course: Ms. Baer is a 31 year old female postop day #1 status post ureteral stent for proximal stone. Concern for infection the culture is inconclusive. white Cell count at admission was 17,000 with a left shift. Vital signs and overall symptomology has improved greatly this morning. White cell count did increase to 29,000 but I feel this remains a reaction to the stent placement. Clinically she is improved. We discussed continued hospitalization and rechecking the white cell count tomorrow but have decided for discharge. Patient will closely monitor her symptoms and temperature at home and contact me if any changes. We will continue Omnicef at discharge as she has reacted well to ceftriaxone Time spent discussing smoking cessation with patient: 3 to 10 minutes - Time Spent with Patient Total time spent providing and/or coordinating discharge services: Less than 30 minutes Exam Initial Vital Signs Temp Pulse Resp BP Pulse Ox 98.4 F 144 18 131/81 97 12/09/16 05:37 12/09/16 05:37 12/09/16 05:37 12/09/16 05:37 12/09/16 05:37 - General physical appearance Present: well developed, no distress - VTE Documentation of Mechanical Device: Intermittent pneumatic compression device
== END 2016-12-10 08:25 | disposition home or self-care (01) ==
LOC: EMEROO 05:34 → 3ANU 05:34
PROVIDERS: ADMIT Urology; ATTEND Urology